=== PATIENT | male | born 1975 | race Caucasian/White ===

== ENCOUNTER 2022-03-07 15:14 | Emergency (ER) | payer MEDICAID ==
[2022-03-07] MEDS ORDERED: HYDROmorphone 1 MG/ML Syringe IM ONE (16:27)
[2022-03-07] MEDS ORDERED: Ibuprofen 400 MG Tab PO ONE (16:41)
[2022-03-07] MEDS ORDERED: oxyCODONE 5 MG Tab PO ONE (16:41)
[2022-03-07] MEDS ORDERED: Ondansetron 4 MG Tab.DIS PO ONE (18:27)
== END 2022-03-07 18:56 | disposition home or self-care (01) ==
LOC: JP.ED 15:14
DX: S20.221A Contusion of right back wall of thorax, initial encounter (principal); E03.9 Hypothyroidism, unspecified; Z79.899 Other long term (current) drug therapy; W10.9XXA Fall (on) (from) unspecified stairs and steps, initial encounter; Y92.480 Sidewalk as the place of occurrence of the external cause
CPT/HCPCS: 71250; 96372; 99283; A9270; Q0162